=== PATIENT | female | born 1990 | race Caucasian/White ===

== ENCOUNTER 2017-12-22 20:47 | Emergency (ER) | payer MEDICAID ==
[~2017-12-22] VITALS: Ht 149.9 cm; Wt 69.9 kg
[2017-12-22 20:50] VITALS: BP 111/76
--- NOTE | 2017-12-22 20:55 | NUR ---
PT AMBUALTED TO BED. GAVE REPORT TO HILARY DOCKERY
--- NOTE | 2017-12-22 21:00 | NUR ---
PATIENT IS A 27 Y/O FEMALE WHO PRESENTS TO THE ED C/O SOB. PT STATES THAT IT STARTED YESTERDAY AND FELT A PRESSURE. TOOK AN ASPIRIN WITH RELIEF AND NOW PAIN RETURNED. PT REPORTS 7/10 ACHING UPPER LEFT PRESSURE RADIATE TO LEFT ARM. PT DENIES N/V/D. PT AAOX4, RR EVEN/UNLABORED. PT REPOSITIONED FOR COMFORT, BED IN LOWEST POSITION. ER MD DR. CORNELIUS NOTIFIED. WILL CONTINUE TO MONITOR.
--- NOTE | 2017-12-22 21:26 | NUR ---
xray at bedside
[2017-12-22 22:00] VITALS: BP 125/81
== END 2017-12-22 22:00 | disposition home or self-care (01) ==
LOC: MED 20:47
DX: F41.9 Anxiety disorder, unspecified (principal); R07.89 Other chest pain
CPT/HCPCS: 71045; 81002; 81025; 93005; 99284; Q0092